=== PATIENT | female | born 1950 | race Caucasian/White ===

== ENCOUNTER 2018-04-22 09:39 | Day surgery (SDC) | payer MEDICARE, BC ==
[~2018-04-22] VITALS: Ht 170.2 cm; Wt 84.0 kg
[2018-04-22 10:09] VITALS: BP 102/69
[2018-04-22] MEDS ORDERED: BUPIVACAINE/PF-EPI 0.5% 1:200K ONE (10:09)
[2018-04-22] MEDS ORDERED: DOCU-131 PO (10:18)
[2018-04-22] MEDS ORDERED: ARIP5TAB13 PO (10:18)
[2018-04-22] MEDS ORDERED: CARV3.1212 PO (10:18)
[2018-04-22] MEDS ORDERED: BUSP5TAB2 PO (10:18)
[2018-04-22] MEDS ORDERED: MULT-758 PO (10:18)
[2018-04-22] MEDS ORDERED: ESCI10TA10 PO (10:18)
[2018-04-22] MEDS ORDERED: FENTANYL PF 250 MCG/5ML ONE (11:07)
[2018-04-22] MEDS ORDERED: MIDAZOLAM 1 MG/ML, 2ML ONE (11:07)
[2018-04-22] MEDS ORDERED: LACTATED RINGERS 1,000 ML IV SCH (11:29)
[2018-04-22 11:36] LABS: BASOPHILS # (AUTO) 0.07 x10^3/uL (0-0.1); BASOPHILS % (AUTO) 1 % (0-1); EOSINOPHILS # (AUTO) 0.19 x10^3/uL (0-0.4); EOSINOPHILS % (AUTO) 3 % (1-7); LYMPHOCYTES # (AUTO) 1.69 x10^3/uL (1-3.4); LYMPHOCYTES % (AUTO) 26 % (22-44); MD NO; MEAN CORPUSCULAR HEMOGLOBIN 31.1 pg (27.0-34.8); MEAN CORPUSCULAR HGB CONC 33.7 g/dL (32.4-35.8); MEAN CORPUSCULAR VOLUME 92.4 fL (80-100); MEAN PLATELET VOLUME 9.5 fL (7.4-10.4); MONOCYTES # (AUTO) 0.49 x10^3/uL (0.2-0.8); MONOCYTES % (AUTO) 8 % (2-9); NEUTROPHILS # (AUTO) 4.15 x10^3/uL (1.8-6.8); NEUTROPHILS % (AUTO) 63 % (42-75); PLATELET COUNT 245 x10^3/uL (130-400); RED BLOOD COUNT 5.06 x10^6/uL (3.82-5.3); RED CELL DISTRIBUTION WIDTH 13.7 % (9.6-15.2)
[2018-04-22 11:44] LABS: INTERNATIONAL NORMALIZED RATIO 0.96 (0.93-1.1); PROTHROMBIN TIME 10.2 Seconds (9.6-11.5)
[2018-04-22 11:47] LABS: ALBUMIN 3.5 g/dL (3.4-5.0); ANION GAP 4 mmol/L (5-15); CHLORIDE 105 mmol/L (98-107)
[2018-04-22 11:51] LABS: ALANINE AMINOTRANSFERASE 30 U/L (12-78); ALKALINE PHOSPHATASE 83 U/L (45-117); BILIRUBIN,TOTAL 0.4 mg/dL (0.2-1.0); CREATININE 0.93 mg/dL (0.55-1.02); TOTAL PROTEIN 7.3 g/dL (6.4-8.2)
[2018-04-22] MEDS ORDERED: PROMETHAZINE 12.5 MG SUPP PR PRN (13:00)
[2018-04-22] MEDS ORDERED: hydrALAzine 20 MG/ML, 1ML IV PRN (13:00)
[2018-04-22] MEDS ORDERED: ONDANSETRON 2MG/ML, 2ML IV PRN (13:00)
[2018-04-22] MEDS ORDERED: FENTANYL PF 100 MCG/2ML IV PRN (13:00)
[2018-04-22] MEDS ORDERED: ONDANSETRON ODT 8 MG PO PRN (13:00)
[2018-04-22] MEDS ORDERED: OXYcodone 5 MG/5 ML ORAL.SOL UDC PO PRN (13:00)
[2018-04-22] MEDS ORDERED: LABETALOL 5MG/ML, 20ML IV PRN (13:00)
[2018-04-22] MEDS ORDERED: HYDROmorphone 1 MG/ML, 1ML IV PRN (13:00)
[2018-04-22] MEDS ORDERED: LABETALOL 20 MG/4 ML ONE (14:03)
[2018-04-22] MEDS ORDERED: hydrALAzine 20 MG/ML, 1ML ONE (14:14)
[2018-04-22] MEDS ORDERED: DEXAMETHASONE 4 MG/ML, 1ML ONE (15:39)
[2018-04-22] MEDS ORDERED: CEFAZOLIN 1,000 MG ONE (15:39)
[2018-04-22] MEDS ORDERED: SUCCINYLCHOLINE 20 MG/ML, 10ML ONE (15:39)
[2018-04-22] MEDS ORDERED: PROPOFOL 10 MG/ML, 20ML ONE (15:39)
[2018-04-22] MEDS ORDERED: ONDANSETRON 2MG/ML, 2ML ONE (15:39)
[2018-04-22] MEDS ORDERED: ROCURONIUM 10MG/ML,5ML ONE (15:39)
== END 2018-04-22 15:32 | disposition home or self-care (01) ==
LOC: OUT 09:39 → EDSTATUS 12:00 → OUT 15:32
PROVIDERS: ATTEND Surgery
DX: C49.12 Malignant neoplasm of connective and soft tissue of left upper limb, including shoulder (principal); R59.1 Generalized enlarged lymph nodes; F10.21 Alcohol dependence, in remission; F31.9 Bipolar disorder, unspecified; I10 Essential (primary) hypertension; E78.5 Hyperlipidemia, unspecified; Z79.899 Other long term (current) drug therapy; Z88.8 Allergy status to other drugs, medicaments and biological substances; Z79.01 Long term (current) use of anticoagulants
CPT/HCPCS: 25073; 36415; 38525; 78195; 80053; 85025; 85610; 88307; 93005; A9541; J0330; J0360; J0690; J1100; J2250; J2405; J2704; J3010; J7120; 88341; 88342